=== PATIENT | male | born 1970 | race Caucasian/White ===

== ENCOUNTER → 2020-07-11 | Outpatient (CLI) | payer OTHER ==
--- NOTE | 2020-07-11 10:44 | XR ---
EXAMINATION TYPE: XR chest 2V DATE OF EXAM: 07/11/2020 COMPARISON: NONE TECHNIQUE: PA and lateral views submitted. HISTORY: Shortness of breath FINDINGS: The lungs are clear and there is no pneumothorax, pleural effusion, or focal pneumonia. Heart size normal. No overt failure. Biapical pleural thickening. IMPRESSION: 1. No acute process.
== END | disposition home or self-care (01) ==
LOC: RADXRYALE 08:45
PROVIDERS: ATTEND Family Medicine
DX: R06.02 Shortness of breath (principal)
CPT/HCPCS: 71046

== ENCOUNTER → 2023-04-26 | Outpatient (CLI) | payer MEDICAID ==
[2023-04-26 15:52] LABS: Basophils # (A) 0.06 X 10*3/uL (0.00-0.10); Eosinophils # (A) 0.22 X 10*3/uL (0.04-0.35); Eosinophils % (A) 3.5 %; HCT 44.3 % (39.6-50.0); Lymphocytes % (A) 35.4 %; MCH 29.6 pg (27.0-32.0); MCHC 33.9 g/dL (32.0-37.0); MCV 87.4 FL (80.0-97.0); Mean Platelet Volume 9.3 FL (9.5-12.2); Monocytes # (A) 0.79 X 10*3/uL (0.20-1.00); Monocytes % (A) 12.7 %; NRBC Per 100 WBC 0 X 10*3/uL (0.00-0.01); Neutrophils # (A) 2.93 X 10*3/uL (1.80-7.70); Neutrophils % (A) 47.2 %; Platelet Count 295 X 10*3/uL (140-440); RBC 5.07 X 10*6/uL (4.40-5.60); RDW 13.2 % (11.5-14.5); WBC 6.21 X 10*3/uL (4.50-10.00)
[2023-04-26 16:08] LABS: ALT 37 U/L (10-49); AST 27 U/L (14-35); Albumin 4.5 g/dL (3.8-4.9); Albumin/Globulin Ratio 1.55 Ratio (1.60-3.17); Alkaline Phosphatase 81 U/L (41-126); Blood Urea Nitrogen 17.4 mg/dL (9.0-27.0); Calcium 10.4 mg/dL (8.7-10.3); Chloride 104 mmol/L (96-109); Globulin 2.9 g/dL (1.6-3.3); Glucose 104 mg/dL (70-110); LDL Cholesterol,Calculated 185.3 mg/dL (0.0-131.0); Potassium 4.8 mmol/L (3.5-5.5); Prostate Specific Antigen 7.94 ng/mL (0.000-3.500); Sodium 141 mmol/L (135-145); Total Bilirubin 0.4 mg/dL (0.3-1.2); Total Protein 7.4 g/dL (6.2-8.2)
== END | disposition home or self-care (01) ==
LOC: LABWHC1 09:06
PROVIDERS: ATTEND Family Medicine
DX: Z00.00 Encounter for general adult medical examination without abnormal findings (principal); Z12.5 Encounter for screening for malignant neoplasm of prostate; K21.9 Gastro-esophageal reflux disease without esophagitis; E66.09 Other obesity due to excess calories
CPT/HCPCS: 36415; 80053; 80061; 84153; 84443; 85025

== ENCOUNTER → 2023-05-10 | Outpatient (CLI) | payer MEDICAID ==
--- NOTE | 2023-05-10 15:59 | CTL ---
EXAMINATION TYPE: CT Low Dose Lung DATE OF EXAM ORDERED: 05/10/2023 HISTORY: . Lung cancer screening CT DLP: 114.[address] CTDI: 2.8 mGy Automated exposure control for dose reduction was used. SCREENING VISIT: COMPARISON: TECHNIQUE: Low dose computed tomography scan was performed through the chest at 1 mm thick sections a nd reconstructed images in multiple planes at 1 mm and [address] DIAGNOSTIC QUALITY: Satisfactory FINDINGS: CHEST: Lungs: Normal. Pleura: Normal. Mediastinum And [place]: Normal. Cardiovascular: Normal. Chest Wall: Normal. Upper Abdomen: Normal. MUSCULOSKELETAL: Normal. IMPRESSION: 1. Negative lung cancer screening examination for significant pulmonary nodules. 2. No acute findings otherwise seen. Lung-RADS 1. Continue screening in 1 year.
== END | disposition home or self-care (01) ==
LOC: RADCTMAIN 15:33
PROVIDERS: ATTEND Family Medicine
DX: Z12.2 Encounter for screening for malignant neoplasm of respiratory organs (principal); F17.211 Nicotine dependence, cigarettes, in remission
CPT/HCPCS: 71271

== ENCOUNTER → 2023-07-21 | Outpatient (CLI) | payer MEDICAID ==
--- NOTE | 2023-07-21 12:51 | MR ---
EXAMINATION TYPE: MR Prostate wo/w con DATE OF EXAM: 07/21/2023 9:41 AM COMPARISON: None. CLINICAL INDICATION:Male, 53 years old with history of R97.20 ELEVATED PROSTATE SPECIFIC ANTIGEN [PSA ; Elevated PSA, 04/26/23 7.94 06/05/23 6.51 TECHNIQUE: Multi-planar, multi-sequence imaging of the pelvis is performed prior to and following the uncomplicated administration of bolus intravenous gadolinium. CONTRAST: 10.5 Gadavist Interpretive Criteria: PI-RADS v2.1 SERUM PSA: 7.94 on 04/26/2023. 6.51 on 06/05/2023.. No data available. on No data available.. No data available. on No data available.. SURGICAL PATHOLOGY: No data available. FINDINGS: Prostatic dimensions: 4.1 x 3.8 x 3.5 cm. "Bullet" Volume:35.69 (PSA density=0.18 ng/mL/mL) CENTRAL GLAND (Central and Transition Zones/CZ+TZ): Multiple bilateral, heterogenous appearing hypertrophic stromal nodules, without suspicious lesion. ( PI-RADS 2) PERIPHERAL ZONE (PZ): No evidence of masslike abnormality, or localized perfusional hypervascularity, to further suggest a focus of clinically significant prostate cancer. (PI-RADS 2) SEMINAL VESICLES (SV): Symmetric and unremarkable. PERIPROSTATIC TISSUES: Unremarkable. LYMPH NODES: No enlarged pelvic lymph node. REMAINING PELVIS: Bladder wall is within normal limits given distention. No abnormal free or organized intrapelvic fluid collection. No pathologic bowel dilation or mural thickening. Fatty changes to the inguinal canals bilaterally.. OSSEOUS STRUCTURES: No suspicious osseous abnormality. Subchondral cystic change on the right acetabulum. IMPRESSION: 1. No specific features for high-risk prostate cancer. Maximum PI-RADS score: 2. 2. Mild BPH, estimated gland volume 35.69 mL. 3. No suspicious osseous lesion. No lymphadenopathy. No evidence of prostate adenocarcinoma involving the periprostatic tissues.
== END | disposition home or self-care (01) ==
LOC: RADMRIMAIN 08:25
PROVIDERS: ATTEND Urology
DX: N40.0 Benign prostatic hyperplasia without lower urinary tract symptoms (principal); R97.20 Elevated prostate specific antigen [PSA]
CPT/HCPCS: 72197; A9585

== ENCOUNTER → 2023-08-19 | Outpatient (CLI) | payer MEDICAID ==
[2023-08-19 18:45] LABS: Basophils # (A) 0.05 X 10*3/uL (0.00-0.10); Basophils % (A) 0.9 %; Eosinophils # (A) 0.35 X 10*3/uL (0.04-0.35); Eosinophils % (A) 6.1 %; HCT 41.3 % (39.6-50.0); HGB 14.3 g/dL (13.0-17.0); Lymphocytes # (A) 1.99 X 10*3/uL (0.90-5.00); Lymphocytes % (A) 34.5 %; MCH 29.6 pg (27.0-32.0); MCHC 34.6 g/dL (32.0-37.0); MCV 85.5 FL (80.0-97.0); Mean Platelet Volume 9.5 FL (9.5-12.2); Monocytes # (A) 0.61 X 10*3/uL (0.20-1.00); Monocytes % (A) 10.6 %; NRBC Per 100 WBC 0 X 10*3/uL (0.00-0.01); Neutrophils # (A) 2.75 X 10*3/uL (1.80-7.70); Neutrophils % (A) 47.7 %; Platelet Count 303 X 10*3/uL (140-440); RBC 4.83 X 10*6/uL (4.40-5.60); WBC 5.76 X 10*3/uL (4.50-10.00)
[2023-08-19 19:16] LABS: Blood Urea Nitrogen 20.4 mg/dL (9.0-27.0); Calcium 9.5 mg/dL (8.7-10.3); Carbon Dioxide 25.2 mmol/L (21.6-31.8); Chloride 103 mmol/L (96-109); Glucose 150 mg/dL (70-110); Potassium 4.1 mmol/L (3.5-5.5); Sodium 140 mmol/L (135-145)
== END | disposition home or self-care (01) ==
LOC: LABPAT 16:08
PROVIDERS: ATTEND Urology
DX: Z01.812 Encounter for preprocedural laboratory examination (principal); R97.20 Elevated prostate specific antigen [PSA]
CPT/HCPCS: 36415; 80048; 85025; 87086

== ENCOUNTER → 2023-08-21 | Outpatient (CLI) | payer MEDICAID ==
[2023-08-21 10:43] LABS: Appearance,Urine Clear (Clear); Bilirubin,Urine Negative (Negative); Blood,Urine Trace (Negative); Color,Urine Yellow; Glucose,Urine (UA) Negative (Negative); Ketones,Urine Negative (Negative); Leukocyte Esterase,Urine Negative (Negative); Mucus,Urine Rare /hpf; Nitrite,Urine Negative (Negative); PH, Urine 6.5 (5.0-8.0); Protein,Urine Negative (Negative); RBC,Urine 4 /hpf (0-5); Specific Gravity,Urine 1.028 (1.001-1.035); Urobilinogen,Urine <2.0 mg/dL (<2.0); WBC,Urine 1 /hpf (0-5)
== END | disposition home or self-care (01) ==
LOC: LABPAT 09:41
PROVIDERS: ATTEND Urology
DX: Z01.812 Encounter for preprocedural laboratory examination (principal); R97.20 Elevated prostate specific antigen [PSA]
CPT/HCPCS: 81001

== ENCOUNTER 2023-08-26 11:28 | Day surgery (SDC) | payer MEDICAID ==
--- NOTE | 2023-08-24 10:18 | P.HPIHPCON ---
History of Present Illness H&P Date: 08/24/23 Chief Complaint: Elevated PSA This is a 53-year-old male with history of elevated PSA at 8.07, underwent a prostate MRI that showed no suspicious lesions his prostate measured 35 g. Discussed with him given that his PSA has been persistently rising, his PSA is outside the expected range for his prostate size. Discussed MRI of the prostate carries a 15% false-negative rate. Discussed given his PSA value and his age I do recommend proceeding with sampling of the prostate. Option of transrectal biopsy of the prostate was discussed. He preferred to undergo prostate biopsy under anesthesia. Aware the risk which includes but not limited to bleeding, infection, sepsis. He understood all the risk and agreed to proceed Consent for Procedure: I have explained the operation/procedure to the patient, including the risks, benefits, side effects, alternative therapies (including not receiving the proposed treatment or service), the likelihood of the patient achieving his/her goals, and potential recuperation problems for the procedure/sedation/analgesia, as well as any blood products, if indicated. I also explained to the patient the risks, benefits and side effects of the alternatives, as well as the risks related to not receiving the proposed procedure, care, treatment, or services. Past Medical History Past Medical History: Asthma, GERD/Reflux, Prostate Disorder Additional Past Medical History / Comment(s): elevated PSA, asthma as a child History of Any Multi-Drug Resistant Organisms: None Reported Past Surgical History: No Surgical Hx Reported Additional Past Anesthesia/Blood Transfusion Reaction / Comment(s): no family problems w/anesthesia that he knows Past Psychological History: No Psychological Hx Reported Smoking Status: Former smoker Past Alcohol Use History: Occasional Additional Past Alcohol Use History / Comment(s): quit smoking 12 yrs. ago, smoked of & on for 20 yrs. 1ppd Past Drug Use History: None Reported - Past Family History Father Family Medical History: Cancer, Deep Vein Thrombosis (DVT) Additional Family Medical History / Comment(s): lung Medications and Allergies Home Medications Medication Instructions Recorded Confirmed Type Omeprazole [PriLOSEC] 40 mg PO DAILY 08/23/23 08/23/23 History Allergies Allergy/AdvReac Type Severity Reaction Status Date / Time No Known Allergies Allergy Verified 08/23/23 15:59 Surgical - Exam - General no distress, no pain - Eyes normal ocular movement, no pale - ENT normal nares, normal mucosa - Respiratory normal expansion, normal respiratory effort - Abdomen Abdomen: soft, non tender Assessment and Plan Assessment: OR transrectal biopsy of the prostate
[~2023-08-26 11:28] MED LIST: HYDROmorphone 0.5 MG/0.5 ML SYRINGE IVP PRN; LIDOCAINE 1% (10MG/ML) FOR IV START INTRADERMA PRN; MIDAZOLAM 2 MG/2 ML VIAL IV PRN; fentaNYL (PF) 50 MCG/ML 2 ML AMP IVP PRN
[2023-08-26] MEDS: DEXAMETHASONE SOD PHOSPHATE 4 MG/ML 1 ML VIAL IV ONE (13:06)
[2023-08-26] MEDS: ONDANSETRON 4 MG/2 ML VIAL IVP ONE (13:06)
[2023-08-26] MEDS: LACTATED RINGERS 1,000 ML IV SCH (13:07)
[2023-08-26] MEDS: GENTAMICIN 40 MG/ML 2 ML VIAL IM PRN (13:21)
[2023-08-26] MEDS: IV FLUID CONTINUATION 1,000 ML IV ONE (13:25)
[2023-08-26 13:29] VITALS: TEMP 97.1
[2023-08-26] MEDS: LEVOFLOXACIN 500MG-D5W PMX 500 MG in DEXTROSE/WATER 1 100ML.BAG IVPB STA (14:29)
[2023-08-26] MEDS ORDERED: fentaNYL (PF) 50 MCG/ML 2 ML AMP ONE (16:00)
[2023-08-26] MEDS ORDERED: MIDAZOLAM 2 MG/2 ML VIAL ONE (16:00)
[2023-08-26] MEDS ORDERED: PROPOFOL 10 MG/ML 20 ML VIAL IV ONE (16:00)
--- NOTE | 2023-08-26 16:29 | P.OP ---
Date of Procedure: 08/26/23 Preoperative Diagnosis: Elevated PSA level Postoperative Diagnosis: Same Procedure(s) Performed: Transrectal ultrasound-guided prostate biopsies Anesthesia: MAC Surgeon: Marcos Davis Estimated Blood Loss (ml): 5 IV fluids (ml): 200 Pathology: other (Prostate biopsies) Condition: stable Disposition: PACU Indications for Procedure: This is a 53-year-old male with history of elevated PSA at 8.07, underwent a prostate MRI that showed no suspicious lesions his prostate measured 35 g. He has been advised to undergo ultrasound-guided prostate biopsies and comes for this reason. Operative Findings: Prostate volume 24.04 cc. No hypoechoic lesions seen. Description of Procedure: The patient was taken to the operating room and placed in the left lateral decubitus position. JEFFREY revealed the prostate to be 20 to 25 g in size, smooth in consistency. The [employer] transrectal ultrasound probe was placed intrarectally. The prostate was imaged in both the axial and sagittal planes, revealing a prostate volume of 24.04 mL. The predicted PSA level based upon this prostate volume is 2.884. Using the Biopty gun, 12 biopsies of the peripheral zone were obtained utilizing a standard template. Once the procedure was completed, the ultrasound probe was removed. The patient tolerated the procedure well was taken to the recovery room stable condition.
[2023-08-26 16:33] VITALS: RESP 14
[2023-08-26 16:53] VITALS: BP 103/64; PULSE 100
== END 2023-08-26 17:01 | disposition home or self-care (01) ==
LOC: OR 11:28
PROVIDERS: ATTEND Urology
DX: C61 Malignant neoplasm of prostate (principal); N41.0 Acute prostatitis; K21.9 Gastro-esophageal reflux disease without esophagitis; J45.909 Unspecified asthma, uncomplicated; Z79.899 Other long term (current) drug therapy
CPT/HCPCS: 55700; 88305; J2250; J1580; J1100; J2405; J1956; J3010; J2704; 88344

== ENCOUNTER → 2024-03-02 | Outpatient (CLI) | payer MEDICAID | END | disposition home or self-care (01) | LOC: LABWHC1 08:28 | PROVIDERS: ATTEND Urology | DX: C61 Malignant neoplasm of prostate (principal) | CPT/HCPCS: 36415; 84153 ==

== ENCOUNTER → 2024-06-27 | Outpatient (CLI) | payer MEDICAID | END | disposition home or self-care (01) | LOC: LABWHC1 14:24 | PROVIDERS: ATTEND Nurse Practitioner | DX: C61 Malignant neoplasm of prostate (principal) | CPT/HCPCS: 36415; 84153 ==